=== PATIENT | male | born 1960 | race Caucasian/White ===

== ENCOUNTER 2018-09-24 19:24 | Emergency (ER) | payer BC, OTHER ==
[2018-09-24] MEDS: PERCOCET 5MG/325MG TAB PO (19:45)
[2018-09-24] MEDS: cefTRIAXone SOD 2 GM VIAL (J0696) IM (19:45)
[2018-09-24] MEDS: ADACEL/BOOSTRIX VACCINE (DIPHTH/PERTUSS/ACELL/TETANUS)0.5ML SYR (90715) IM (19:45)
[2018-09-24] MEDS: OXYCODONE/APAP 5MG/325MG(BULK FOR ED) 1 TABLET PO (20:45)
== END 2018-09-24 21:35 | disposition home or self-care (01) ==
LOC: M ED 19:24
DX: S81.812A Laceration without foreign body, left lower leg, initial encounter (principal); W01.0XXA Fall on same level from slipping, tripping and stumbling without subsequent striking against object, initial encounter; Y92.89 Other specified places as the place of occurrence of the external cause; Z79.899 Other long term (current) drug therapy
CPT/HCPCS: J0696